=== PATIENT | female | born 1995 | race Caucasian/White ===

== ENCOUNTER 2018-03-01 15:06 | Emergency (ER) | payer OTHER ==
[~2018-03-01] VITALS: Ht 157.5 cm; Wt 81.7 kg
[~2018-03-01 15:06] MED LIST: IBUP800 PO; PENVK500 PO; PSEU120ER PO
[2018-03-01] MEDS ORDERED: TYLECOD3 PO (15:28)
[2018-03-01] MEDS ORDERED: Amoxicillin500 MG PO (15:28)
== END 2018-03-01 15:41 | disposition home or self-care (01) ==
LOC: ER 15:06
DX: K08.89 Other specified disorders of teeth and supporting structures (principal); F17.210 Nicotine dependence, cigarettes, uncomplicated

== ENCOUNTER 2018-10-12 18:56 | Emergency (ER) | payer OTHER ==
[~2018-10-12] VITALS: Ht 160 cm; Wt 81.7 kg
[~2018-10-12 18:56] MED LIST changes: +Amoxicillin500 MG PO; +TYLECOD3 PO
== END 2018-10-12 20:08 | disposition home or self-care (01) ==
LOC: ER 18:56
DX: J03.90 Acute tonsillitis, unspecified (principal); J04.0 Acute laryngitis
CPT/HCPCS: 87081; 87430; 99283

== ENCOUNTER 2019-05-06 18:34 | Emergency (ER) | payer OTHER ==
[~2019-05-06] VITALS: Ht 157.5 cm; Wt 95.2 kg
[2019-05-06] MEDS ORDERED: Norco 5-325 Ta1 EACH PO (19:46)
== END 2019-05-06 19:55 | disposition home or self-care (01) ==
LOC: ER 18:34
DX: S39.011A Strain of muscle, fascia and tendon of abdomen, initial encounter (principal); X58.XXXA Exposure to other specified factors, initial encounter; F17.200 Nicotine dependence, unspecified, uncomplicated
CPT/HCPCS: 96372; 99283-25; A9270; J1885

== ENCOUNTER 2019-06-09 17:18 | Emergency (ER) | payer OTHER ==
[~2019-06-09] VITALS: Ht 157.5 cm; Wt 93.0 kg
[~2019-06-09 17:18] MED LIST changes: +Norco 5-325 Ta1 EACH PO
== END 2019-06-09 18:50 | disposition home or self-care (01) ==
LOC: ER 17:18
DX: S93.401A Sprain of unspecified ligament of right ankle, initial encounter (principal); F17.210 Nicotine dependence, cigarettes, uncomplicated; X50.9XXA Other and unspecified overexertion or strenuous movements or postures, initial encounter
CPT/HCPCS: 29515; 73610; 99283-25; L1906

== ENCOUNTER → 2019-07-30 | Outpatient (CLI) | payer OTHER ==
[2019-08-01 21:06] LABS: CHLAMYDIA TRACHOMATIS, NAA Negative (Negative); NEISSERIA GONORRHOEAE, NAA Negative (Negative)
== END | disposition home or self-care (01) ==
LOC: LAB 13:40 → LAB SHORT 13:40
PROVIDERS: Physician Assistant
DX: Z01.419 Encounter for gynecological examination (general) (routine) without abnormal findings (principal)
CPT/HCPCS: 87491; 87591; G0123

== ENCOUNTER 2019-11-20 17:05 | Emergency (ER) | payer OTHER ==
[~2019-11-20] VITALS: Ht 157.5 cm; Wt 90.7 kg
[2019-11-20] MEDS ORDERED: CYCL10 PO (17:34)
[2019-11-20] MEDS ORDERED: IBUP800 (17:34)
[2019-11-20] MEDS ORDERED: DEPO-PROVE150 MG/1 M IM (17:35)
[2019-11-20] MEDS ORDERED: Norco 5-325 Ta1 EACH PO (19:10)
== END 2019-11-20 19:15 | disposition home or self-care (01) ==
LOC: ER 17:05
DX: S39.92XA Unspecified injury of lower back, initial encounter (principal); F17.210 Nicotine dependence, cigarettes, uncomplicated; X58.XXXA Exposure to other specified factors, initial encounter
CPT/HCPCS: 72220; 99283-25

== ENCOUNTER 2019-11-24 23:30 | Emergency (ER) | payer OTHER ==
[~2019-11-24] VITALS: Ht 157.5 cm; Wt 95.2 kg
[~2019-11-24 23:30] MED LIST changes: +CYCL10 PO; +DEPO-PROVE150 MG/1 M IM; +IBUP800
[2019-11-25] MEDS ORDERED: Bactrim Ds Tab1 EACH PO (00:46)
[2019-11-25] MEDS ORDERED: IBUP600 PO (00:46)
[2019-11-25] MEDS ORDERED: Norco 5-325 Ta1 EACH PO (00:46)
[2019-11-25] MEDS ORDERED: CEPH500 PO (00:46)
== END 2019-11-25 02:57 | disposition home or self-care (01) ==
LOC: ER 23:30
DX: L03.317 Cellulitis of buttock (principal); L02.31 Cutaneous abscess of buttock; F17.200 Nicotine dependence, unspecified, uncomplicated
CPT/HCPCS: 93005; 93010; 96365; 96375; 99283; J0696; J1885; J2270; J2405; J7030

== ENCOUNTER 2019-11-28 12:15 | Emergency (ER) | payer OTHER ==
[~2019-11-28] VITALS: Ht 157.5 cm; Wt 95.2 kg
[~2019-11-28 12:15] MED LIST changes: +Bactrim Ds Tab1 EACH PO; +CEPH500 PO; +IBUP600 PO
== END 2019-11-28 13:29 | disposition home or self-care (01) ==
LOC: ER 12:15
DX: K20.9 Esophagitis, unspecified (principal); L03.317 Cellulitis of buttock; L02.31 Cutaneous abscess of buttock; F17.210 Nicotine dependence, cigarettes, uncomplicated
CPT/HCPCS: 99283

== ENCOUNTER 2019-12-29 19:40 | Emergency (ER) | payer OTHER ==
[~2019-12-29] VITALS: Ht 157.5 cm; Wt 95.2 kg
[2019-12-29] MEDS ORDERED: LAMISIL AT12 GM TOP (20:09)
== END 2019-12-29 20:41 | disposition home or self-care (01) ==
LOC: ER 19:40
DX: B36.8 Other specified superficial mycoses (principal); F17.200 Nicotine dependence, unspecified, uncomplicated
CPT/HCPCS: 99282

== ENCOUNTER 2021-08-13 08:50 | Emergency (ER) | payer OTHER ==
[~2021-08-13] VITALS: Ht 157.5 cm; Wt 86.2 kg
[~2021-08-13 08:50] MED LIST changes: +LAMISIL AT12 GM TOP
[2021-08-13 09:16] LABS: Source, Urine Clean Catch
[2021-08-13 09:23] LABS: Appearance, Urine Clear (Clear); Blood, Urine 1+ (Neg); Color, Urine Yellow (P-Yellow); Glucose Qualitative, Urine Neg (Neg); Ketones, Urine 1+ (Neg); Leukocyte Esterase, Urine 1+ (Neg); Nitrite, Urine Neg (Neg); Protein, Urine 2+ (Neg); Urobilinogen, Urine 1+ (Normal)
[2021-08-13 09:33] LABS: BASOPHILS ABSOLUTE AUTO 0.02 K/mm3 (0.00-0.23); BASOPHILS PERCENT AUTO 0 % (0-2); EOSINOPHILS ABSOLUTE AUTO 0.04 K/mm3 (0.00-0.68); EOSINOPHILS PERCENT AUTO 1 % (0-6); Hematocrit 46.6 % (33.0-51.0); Hemoglobin 16.1 g/dL (11.5-16.0); IMMATURE GRAN ABSOLUTE AUTO 0.02 K/mm3 (0.00-0.10); IMMATURE GRAN PERCENT AUTO 0 % (0-1); LYMPHOCYTES ABSOLUTE AUTO 0.95 K/mm3 (0.84-5.20); LYMPHOCYTES PERCENT AUTO 16 % (21-46); MONOCYTES ABSOLUTE AUTO 0.29 K/mm3 (0.16-1.47); MONOCYTES PERCENT AUTO 5 % (4-13); Mean Corpuscular HGB 30.4 pg (26.0-34.0); Mean Corpuscular HGB Conc 34.5 g/dL (31.5-36.5); Mean Corpuscular Volume 88 fL (80-100); NEUTROPHILS ABSOLUTE AUTO 4.57 K/mm3 (1.96-9.15); NEUTROPHILS PERCENT AUTO 78 % (41-73); Platelet Count 284 K/mm3 (150-400); RDW Coefficient Variation 12.6 % (11.7-14.2); RDW Standard Deviation 40.9 fL (35.1-46.3); Red Blood Cell Count 5.29 M/mm3 (3.80-5.20); White Blood Cell Count 5.89 K/mm3 (4.00-11.30)
[2021-08-13 09:42] LABS: Alanine Aminotransfer (ALT/SGP 27 U/L (12-78); Albumin, Blood 3.7 g/dL (3.4-5.0); Albumin/Globulin Ratio 0.9 (0.8-1.8); Alk Phos 96 U/L (50-136); Anion Gap 8 mmol/L (6-16); Aspartate Aminotrans (AST/SGOT 17 U/L (12-37); Bilirubin, Total 0.3 mg/dL (0.1-1.0); Blood Urea Nitrogen 14 mg/dL (8-24); Bun/Creatinine Ratio 17.3 (12.0-20.0); CO2, Blood 21 mmol/L (21-32); Chloride, Blood 109 mmol/L (98-108); Creatinine, Blood 0.81 mg/dL (0.40-1.00); Globulin, Blood 4.3 g/dL (2.2-4.0); Glomerular Filtration Rate >60 (60-); Glucose, Blood 107 mg/dL (70-99); Potassium, Blood 3.2 mmol/L (3.5-5.5); Sodium, Blood 138 mmol/L (136-145)
[2021-08-13 09:46] LABS: Bilirubin, Urine 1+ (Neg)
[2021-08-13 09:48] LABS: Red Blood Cells, Urine 0-2 /hpf (0-2); Squamous Epithelial Cells Rare /hpf (Few); White Blood Cells, Urine 0-2 /hpf (0-5)
[2021-08-13 09:49] LABS: Amorphous Light (0-Heavy); Bacteria Mod /hpf; Mucus Mod (0-Heavy)
[2021-08-13] MEDS ORDERED: ONDA4ODT MM (12:04)
[2021-08-13] MEDS ORDERED: IMODIUM A-D2 M4 PO (12:04)
[2021-08-13] MEDS ORDERED: DICY20 PO (12:04)
[2021-08-13] MEDS ORDERED: NITR100CA PO (12:04)
== END 2021-08-13 12:30 | disposition home or self-care (01) ==
LOC: ER 08:50
PROVIDERS: Emergency Medicine
DX: N39.0 Urinary tract infection, site not specified (principal); E87.6 Hypokalemia; F17.210 Nicotine dependence, cigarettes, uncomplicated; Z79.899 Other long term (current) drug therapy
CPT/HCPCS: 36415; 74177; 80053; 81001; 81025; 85025; 96374-59; 96375; 99284-25; A9270; J2270; J2405; J7030; Q9967

== ENCOUNTER 2022-09-13 15:18 | Emergency (ER) | payer OTHER ==
[~2022-09-13] VITALS: Ht 157.5 cm; Wt 90.7 kg
[~2022-09-13 15:18] MED LIST changes: +DICY20 PO; +IMODIUM A-D2 M4 PO; +NITR100CA PO; +ONDA4ODT MM
== END 2022-09-13 17:44 | disposition home or self-care (01) ==
LOC: ER 15:18
DX: F41.0 Panic disorder [episodic paroxysmal anxiety] (principal); F17.210 Nicotine dependence, cigarettes, uncomplicated; Z79.899 Other long term (current) drug therapy
CPT/HCPCS: 71046

== ENCOUNTER → 2022-11-24 | Outpatient (CLI) | payer OTHER ==
[~2022-11-24] MED LIST changes: +Veetids 500500 MG PO
== END | disposition home or self-care (01) ==
LOC: LAB 16:10 → LAB SHORT 16:10
PROVIDERS: Registered Nurse Community Health
DX: Z12.4 Encounter for screening for malignant neoplasm of cervix (principal)
CPT/HCPCS: G0145

== ENCOUNTER 2023-02-17 03:32 | Emergency (ER) | payer OTHER ==
[~2023-02-17] VITALS: Ht 157.5 cm; Wt 99.8 kg
[2023-02-17 03:42] VITALS: BP 129/80
[2023-02-17] MEDS ORDERED: ESCI10 PO (03:44)
[2023-02-17] MEDS ORDERED: BUSPIRONE HCL10 M6 PO (03:44)
[2023-02-17] MEDS ORDERED: Cyclobenzaprine5 MG (03:44)
[2023-02-17] MEDS ORDERED: ALBU90OI INH (05:02)
[2023-02-17] MEDS ORDERED: BENZ100A PO (05:02)
[2023-02-17] MEDS ORDERED: PRED20 PO (05:02)
== END 2023-02-17 05:23 | disposition home or self-care (01) ==
LOC: ER 03:32
DX: J02.9 Acute pharyngitis, unspecified (principal); Z79.899 Other long term (current) drug therapy; G43.909 Migraine, unspecified, not intractable, without status migrainosus; F17.210 Nicotine dependence, cigarettes, uncomplicated
CPT/HCPCS: 71045; 87081; 87430; 99283-25; A9270; J1100